=== PATIENT | female | born 1980 | race Two or more races ===

== ENCOUNTER 2020-08-18 13:33 | Emergency (ER) | payer OTHER ==
[~2020-08-18] VITALS: Ht 160 cm; Wt 96.2 kg
[~2020-08-18 13:33] MED LIST: ASA81 MG; KETO10TA2 PO; LEVSIN/SL0.125 MG PO; LOPRESSOR25 MG
== END 2020-08-18 20:18 | disposition home or self-care (01) ==
LOC: ER 13:33
DX: K52.9 Noninfective gastroenteritis and colitis, unspecified (principal)

== ENCOUNTER 2022-04-11 15:14 | Emergency (ER) | payer OTHER ==
[~2022-04-11] VITALS: Ht 162.6 cm; Wt 72.6 kg
== END 2022-04-11 17:16 | disposition home or self-care (01) ==
LOC: ER 15:14
DX: M72.2 Plantar fascial fibromatosis (principal)

== ENCOUNTER 2023-03-13 17:04 | Emergency (ER) | payer OTHER ==
[~2023-03-13] VITALS: Ht 154.9 cm; Wt 92.1 kg
== END 2023-03-14 01:29 | disposition home or self-care (01) ==
LOC: ER 17:05
DX: S93.491A Sprain of other ligament of right ankle, initial encounter (principal); W19.XXXA Unspecified fall, initial encounter; Y93.89 Activity, other specified; Y92.89 Other specified places as the place of occurrence of the external cause; Y99.8 Other external cause status; Z88.6 Allergy status to analgesic agent